=== PATIENT | female | born 1995 | race Caucasian/White ===

== ENCOUNTER → 2019-04-30 17:06 | Outpatient (CLI) | payer MEDICAID, SELFPAY ==
[2019-04-30 13:44] VITALS: BMI 29.9
[2019-04-30 20:32] LABS: Chlamydia Trachomatis by PCR Negative (Negative); Neisserai gonorrhoeae by PCR Negative (Negative); Probe Check PASS; Sample Adequacy Control PASS; Specimen Processing Control PASS
== END ==
PROVIDERS: Referring Provider Nurse Practitioner Women's Health; Visit Provider Nurse Practitioner Women's Health
DX: Z11.3 Encounter for screening for infections with a predominantly sexual mode of transmission (principal)
CPT/HCPCS: 87491; 87591

== ENCOUNTER → 2020-01-13 15:12 | Outpatient (CLI) | payer MEDICAID, SELFPAY ==
[2019-04-30 13:44] VITALS: BMI 29.9
--- NOTE | 2020-01-13 15:24 | US_ITS ---
STUDY: FIRST TRIMESTER OBSTETRICAL ULTRASOUND REASON FOR EXAM: Female, 24 years old. Right lower quadrant pain. History of miscarriage. LMP: 12/06/2019 TECHNIQUE: Transvaginal PRIOR ULTRASOUND: None. FINDINGS: There is no demonstrated intrauterine gestational sac. There is no demonstrated yolk sac. There is no demonstrated embryo ( pole). The uterus measures 7.6 x 5.6 x 4.4 cm. The endometrium measures 12 mm.. There is no demonstrated uterine fibroid. The cervix is closed. The right ovary measures 3.4 x 2.1 x 1.8 cm. There is no right ovarian cyst. There is no visualized right adnexal mass or complex lesion. The left ovary measures 2.8 x 2.4 x 1.9 cm. There is no left ovarian cyst. There is no visualized left adnexal mass or complex lesion. There is a moderate amount of free fluid. US/Transvaginal w/Preg US IMPRESSION: No intrauterine gestation identified. No adnexal mass identified. Moderate amount of free fluid. These findings may be due to an early intrauterine gestation, a nonvisualized ectopic or a spontaneous . Follow-up sonography and beta hCG levels are recommended. Electronically Signed: Trace Clifford, at 16:11 EST Tel , Service support ,
[2020-01-13 16:42] LABS: hCG Titer Quant., Serum 53 mIU/mL (1-3)
== END ==
PROVIDERS: Nurse Practitioner Women's Health; Referring Provider Obstetrics & Gynecology; Visit Provider Obstetrics & Gynecology
DX: O20.0 Threatened abortion (principal); O36.80X0 Pregnancy with inconclusive fetal viability, not applicable or unspecified; Z3A.00 Weeks of gestation of pregnancy not specified
CPT/HCPCS: 36415; 76817; 84702

== ENCOUNTER → 2020-01-15 15:06 | Outpatient (CLI) | payer MEDICAID, SELFPAY ==
[2019-04-30 13:44] VITALS: BMI 29.9
[2020-01-15 16:13] LABS: hCG Titer Quant., Serum 100 mIU/mL (1-3)
== END ==
PROVIDERS: Referring Provider Nurse Practitioner Women's Health; Visit Provider Nurse Practitioner Women's Health
DX: O20.0 Threatened abortion (principal); Z3A.00 Weeks of gestation of pregnancy not specified
CPT/HCPCS: 36415; 84702

== ENCOUNTER → 2020-01-18 12:26 | Outpatient (CLI) | payer MEDICAID, SELFPAY ==
[2019-04-30 13:44] VITALS: BMI 29.9
[2020-01-18 13:34] LABS: hCG Titer Quant., Serum 442 mIU/mL (1-3)
== END ==
PROVIDERS: Referring Provider Nurse Practitioner Women's Health; Visit Provider Nurse Practitioner Women's Health
DX: O20.0 Threatened abortion (principal); Z3A.00 Weeks of gestation of pregnancy not specified
CPT/HCPCS: 36415; 84702

== ENCOUNTER → 2020-01-25 15:46 | Outpatient (CLI) | payer MEDICAID, SELFPAY ==
[2019-04-30 13:44] VITALS: BMI 29.9
--- NOTE | 2020-01-25 15:46 | US_ITS ---
STUDY: FIRST TRIMESTER OBSTETRICAL ULTRASOUND REASON FOR EXAM: Female, 24 years old VIABILITY LMP: TECHNIQUE: Transvaginal TECHNICAL QUALITY: Adequate. PRIOR ULTRASOUND: None. FINDINGS: There is visualization of a single gestational sac in a normal intrauterine position. The mean sac diameter (MSD) measures 8.6 mm, indicating an estimated gestational age (EGA) of 5 weeks, 4 days. The gestational sac shape is within normal limits. There is a visualized yolk sac. The yolk sac measures 2 mm. The placenta is non-visualized. pole not visualized at this time The estimated gestation age (EGA) by LMP is 5 weeks, 5 days. The estimated date of delivery (SUMI) by LMP is September 21, 2020. The estimated gestation age (EGA) by US is 5 weeks, 4 days. The estimated date of delivery (SUMI) by US is September 21, 2020. The uterus measures 7.3 x 5.9 x 4.5 cm. There is no demonstrated uterine fibroid. The cervix is closed. The right ovary measures 3.3 x 1.9 x 2 cm. There is no right ovarian cyst. There is no visualized right adnexal mass or complex lesion. The left ovary measures 4.1 x 2.3 x 1.8 cm. There is a cyst measuring 1.9 x 1.5 x 1.2 cm likely corpus luteum. There is no visualized left adnexal mass or complex lesion. There is minimal fluid in the cul de sac. US/Init OB < 14Wks US IMPRESSION: Probable early intrauterine gestation approximately 5-6 weeks gestational age. Small left corpus luteum cyst. Recommend clinical correlation and follow-up studies Electronically Signed: Colt Pierre MD at 23:05 EST , Service support ,
== END ==
PROVIDERS: Referring Provider Nurse Practitioner Women's Health; Visit Provider Nurse Practitioner Women's Health
DX: O20.0 Threatened abortion (principal); Z3A.00 Weeks of gestation of pregnancy not specified
CPT/HCPCS: 76801

== ENCOUNTER → 2020-02-11 11:04 | Outpatient (CLI) | payer MEDICAID, SELFPAY ==
[2020-02-11 11:01] VITALS: BMI 29.9
[2020-02-11 11:58] LABS: Absolute Lymphocyte Count 2.11 X10^3/uL (0.83-4.51); Absolute Neutrophil Count 5.3 X10^3/uL (2.0-7.7); Basophil# 0.03 X10^3/uL; Basophil% 0.4 % (0-1); Eosinophil# 0.16 X10^3/uL; Hematocrit 36.3 % (37-47); Hemoglobin 11.9 g/dL (12.0-15.0); Lymphocyte # 2.11 X10^3/ul (4.0); Lymphocyte % 25.9 % (19-41); Mean Corp Hgb Conc 32.8 g/dL (32-36); Mean Corpuscular Hgb 29.8 pg (27.0-32.0); Mean Corpuscular Volume 90.8 fL (81-99); Mean Platelet Vol. 10.9 fl (6.2-12.0); Monocyte# 0.57 X10^3/uL; NRBC Flagged by Analyzer 0 % (0-5); Neutrophil # 5.25 X10^3/uL (2.7-7.7); Neutrophil % 64.5 % (47-70); Platelet Count 267 K/mm3 (150-450); RBC Distribution Width CV 12.1 % (11.6-14.6); RBC Distribution Width SD 40.3 fl (35.1-43.9); White Blood Count 8.1 K/mm3 (4.4-11.0)
[2020-02-11 12:07] LABS: Glucose Challenge Gest 1H 50g 112 mg/dL (70-140)
[2020-02-11 12:57] LABS: HIV - WCH Non-Reactive (Nonreactive); Hepatitis B Surface Antigen Non-Reactive (Nonreactive); Hepatitis C Antibody Non-Reactive (Nonreactive); Rubella IgG > 500.0 IU/mL
[2020-02-11 15:38] LABS: Amphetamine Urine VISTA NEGATIVE (<1000 ng/mL); Barbiturate Urine VISTA NEGATIVE (< 200 ng/mL); Benzodiazepine Urine VISTA NEGATIVE (< 200 ng/mL); Cocaine Urine VISTA NEGATIVE (< 300 ng/mL); Ecstacy Urine VISTA NEGATIVE (< 500 ng/mL); Methadone Urine VISTA NEGATIVE (< 300 ng/mL); PCP Urine VISTA NEGATIVE (< 25 ng/mL); THC Urine VISTA NEGATIVE (< 50 ng/mL); Vista UDS pH Range 7
[2020-02-11 17:09] LABS: Chlamydia Trachomatis by PCR Negative (Negative); Neisserai gonorrhoeae by PCR Negative (Negative); Probe Check PASS; Sample Adequacy Control PASS; Specimen Processing Control PASS
[2020-02-18 02:22] LABS: Rapid Plasmin Reagin (RPR) NONREACTIVE (NONREACTIVE)
[2020-02-18 11:27] LABS: HPV APTIMA, High Risk Negative (Negative)
[2020-02-18 11:31] LABS: HPV Reflexed? YES, CHARGE PATIENT
== END ==
PROVIDERS: Referring Provider Obstetrics & Gynecology; Visit Provider Obstetrics & Gynecology
DX: O99.210 Obesity complicating pregnancy, unspecified trimester (principal); Z3A.00 Weeks of gestation of pregnancy not specified
CPT/HCPCS: 80307; 82950; 85025; 86592; 86703; 86762; 86803; 86850; 86900; 86901; 87086; 87088; 87340; 87491; 87591; 87624; 88175; G0145

== ENCOUNTER → 2020-02-24 10:06 | Outpatient (CLI) | payer MEDICAID, SELFPAY ==
[2020-02-11 11:01] VITALS: BMI 29.9
[2020-02-24 11:09] LABS: NATERA MAILED SPECIMEN
== END ==
PROVIDERS: Referring Provider Obstetrics & Gynecology; Visit Provider Obstetrics & Gynecology
DX: Z34.81 Encounter for supervision of other normal pregnancy, first trimester (principal); Z31.430 Encounter of female for testing for genetic disease carrier status for procreative management

== ENCOUNTER → 2020-05-04 13:46 | Outpatient (CLI) | payer MEDICAID, SELFPAY ==
[2020-05-04 08:26] VITALS: BMI 29.9
--- NOTE | 2020-05-04 13:48 | US_ITS ---
STUDY: SECOND AND THIRD TRIMESTER OBSTETRICAL ULTRASOUND REASON FOR EXAM: Female, 24 years old ANATOMY -- HXOF MISCARRIAGES -- SMOKING AND OBESITY AFFECTING LMP: December 16, 2019. TECHNIQUE: Transabdominal TECHNICAL QUALITY: Adequate. PRIOR ULTRASOUND: None. FINDINGS: There is a single intrauterine fetus. The fetus is in a breech presentation. There is demonstrated cardiac activity with a heart rate of 158 bpm. There is a normal amniotic fluid volume. The largest amniotic fluid pocket measures 3.8 cm x 6.5 cm. The amniotic fluid index (ZEINA) is normal. The placenta is anterior in location and is not low lying. There are Grade 1 placental changes. The cervix measures 4.4 cm in length. The adnexal regions are not visualized. BIOMETRY: BPD: 4.55 cm: 19 weeks, 6 days HC: 17.04 cm: 19 weeks, 5 days AC: 14.26 cm: 19 weeks, 5 days FL: 3.16 cm: 19 weeks, 6 days CI: 78% FL/BPD: 69% FL/HC: FL/AC: 22% HC/AC: 1.19 age by current US: 19 weeks, 6 days. SUMI by current US: September 22, 2020. Estimated weight: 308 grams, +/- 45 grams, 30 %. Age by LMP: 20 weeks, 0 days. SUMI by LMP: September 21, 2020. ANATOMY: Gender: Female Cranium: Normal lateral ventricles. Normal choroid plexus. Normal cerebellum. Normal cisterna magna. Normal face, nose and lips. Chest: Normal 4-chamber heart. Abdomen/Pelvis: Normal diaphragm. Normal stomach. Normal abdominal wall. Normal cord insertion. Normal 3 vessel cord. Normal kidneys. Normal bladder. Spine: Limited visualization of the spine due to the anterior position. Follow-up is recommended. Extremities: Normal bilateral upper extremities. Normal bilateral lower extremities. US/OB Anatomy Scan IMPRESSION: Single live intrauterine gestation with a mean gestational age of 19 weeks and 6 days. Limited visualization of the spine. Follow-up is recommended. Electronically Signed: Herminio Cote, at 8:14 EDT , Service support ,
== END ==
PROVIDERS: Referring Provider Nurse Practitioner Women's Health; Visit Provider Nurse Practitioner Women's Health
DX: Z34.90 Encounter for supervision of normal pregnancy, unspecified, unspecified trimester (principal)
CPT/HCPCS: 76805

== ENCOUNTER → 2020-05-18 07:48 | Outpatient (CLI) | payer MEDICAID, SELFPAY ==
[2020-05-04 08:26] VITALS: BMI 29.9
--- NOTE | 2020-05-18 07:49 | US_ITS ---
STUDY: SECOND AND THIRD TRIMESTER OBSTETRICAL ULTRASOUND - LIMITED REASON FOR EXAM: Female, 24 years old complete spine views LMP: December 16, 2019. PRIOR ULTRASOUND: Comparison is made with prior examination dated May 04, 2020. TECHNIQUE: Transabdominal TECHNICAL QUALITY: Adequate. FINDINGS: There is a single intrauterine fetus. The fetus is in a transverse lie with the head on the maternal right side. There is demonstrated cardiac activity with a heart rate of 152 bpm. There is a normal amniotic fluid volume. The largest amniotic fluid pocket measures 5.2 cm x 5.2 cm. The amniotic fluid index (ZEINA) is within normal limits. The placenta is anterior in location and is not low lying. There are Grade 1 placental changes. The cervix measures 5 cm in length. The entire spine was examined. No abnormality is seen. US/OB Limited (No Biometrics) IMPRESSION: The spine is unremarkable. Electronically Signed: Herminio Cote, at 9:06 EDT , Service support ,
== END ==
PROVIDERS: Referring Provider Nurse Practitioner Women's Health; Visit Provider Nurse Practitioner Women's Health
DX: Z34.90 Encounter for supervision of normal pregnancy, unspecified, unspecified trimester (principal)
CPT/HCPCS: 76815

== ENCOUNTER → 2020-07-01 07:50 | Outpatient (CLI) | payer MEDICAID, SELFPAY ==
[2020-06-01 08:28] VITALS: BMI 29.9
[2020-07-01 08:39] LABS: Absolute Lymphocyte Count 1.69 X10^3/uL (0.83-4.51); Absolute Neutrophil Count 7.6 X10^3/uL (2.0-7.7); Basophil# 0.02 X10^3/uL; Basophil% 0.2 % (0-1); Eosinophil# 0.16 X10^3/uL; Eosinophils% 1.6 % (0-5); Hematocrit 33.1 % (37-47); Hemoglobin 11.1 g/dL (12.0-15.0); Lymphocyte # 1.69 X10^3/ul (4.0); Mean Corp Hgb Conc 33.5 g/dL (32-36); Mean Corpuscular Hgb 30.8 pg (27.0-32.0); Mean Corpuscular Volume 91.9 fL (81-99); Mean Platelet Vol. 10.9 fl (6.2-12.0); Monocyte# 0.48 X10^3/uL; Monocyte% 4.8 % (0-10); NRBC Flagged by Analyzer 0 % (0-5); Neutrophil # 7.55 X10^3/uL (2.7-7.7); Platelet Count 304 K/mm3 (150-450); RBC Distribution Width CV 12.3 % (11.6-14.6); RBC Distribution Width SD 41.2 fl (35.1-43.9); White Blood Count 9.9 K/mm3 (4.4-11.0)
[2020-07-01 09:10] LABS: Glucose Challenge Gest 1H 50g 144 mg/dL (70-140)
== END ==
PROVIDERS: Referring Provider Obstetrics & Gynecology; Visit Provider Obstetrics & Gynecology
DX: Z34.80 Encounter for supervision of other normal pregnancy, unspecified trimester (principal); N96 Recurrent pregnancy loss
CPT/HCPCS: 36415; 82950; 85025

== ENCOUNTER → 2020-07-08 06:47 | Outpatient (CLI) | payer MEDICAID, SELFPAY ==
[2020-07-01 08:17] VITALS: BMI 33.7
[2020-07-08 07:37] LABS: Glucose GTT-Gestation. Fasting 80 mg/dL (<105)
[2020-07-08 08:22] LABS: Glucose GTT-Gestational 1 Hr 197 mg/dL (<190)
[2020-07-08 09:22] LABS: Glucose GTT-Gestational 2 Hr 159 mg/dL (<165)
[2020-07-08 10:29] LABS: Glucose GTT-Gestational 3 Hr 85 L (<145)
== END ==
PROVIDERS: Visit Provider Obstetrics & Gynecology
DX: O99.810 Abnormal glucose complicating pregnancy (principal); Z3A.00 Weeks of gestation of pregnancy not specified
CPT/HCPCS: 36415; 82951; 82952

== ENCOUNTER 2020-07-13 08:53 | Outpatient (RCR) | payer MEDICAID, SELFPAY ==
[2020-07-01 08:17] VITALS: BMI 33.7
== END 2020-07-20 23:59 | disposition home or self-care (01) ==
LOC: DC 08:53
PROVIDERS: Visit Provider Obstetrics & Gynecology
DX: Z71.3 Dietary counseling and surveillance (principal); O24.419 Gestational diabetes mellitus in pregnancy, unspecified control; Z3A.00 Weeks of gestation of pregnancy not specified
CPT/HCPCS: G0108

== ENCOUNTER → 2020-08-25 08:00 | Outpatient (CLI) | payer MEDICAID, SELFPAY ==
[2020-07-29 08:04] VITALS: BMI 29.9
[2020-08-16 11:20] VITALS: BMI 29.9
--- NOTE | 2020-08-25 08:01 | US_ITS ---
STUDY: SECOND AND THIRD TRIMESTER OBSTETRICAL ULTRASOUND REASON FOR EXAM: Female, 25 years old growth LMP: 12/16/2019. TECHNIQUE: Transabdominal TECHNICAL QUALITY: Adequate. PRIOR ULTRASOUND: Comparison is made with prior study dated 05/18/2020 and 05/04/2020.. FINDINGS: There is a single intrauterine fetus. The fetus is in a cephalic presentation. There is demonstrated cardiac activity with a heart rate of 138 bpm. There is a normal amniotic fluid volume. The largest amniotic fluid pocket measures 4.6 cm. The amniotic fluid index (ZEINA) is 12.9 cm. The placenta is anterior in location and is not low lying. There are Grade 2 placental changes. The cervix was not measured due to the head position.The bilateral adnexal regions are normal. BIOMETRY: BPD: 8.6 cm: 34 weeks, 4 days HC: 31.7 cm: 35 weeks, 3 days AC: 31.7 cm: 35 weeks, 4 days FL: 6.8 cm: 34 weeks, 5 days CI: 79% FL/BPD: 79% FL/HC: FL/AC: 21% HC/AC: 1.0 age by current US: 35 weeks, 0 days. SUMI by current US: 09/29/2020. Estimated weight: 2642 grams, +/- 391 grams, 30 %. age by prior US: 36 weeks, 0 days. SUMI by prior US: 09/22/2020. Age by LMP: 36 weeks, 1 days. SUMI by LMP: 09/21/2020. US/OB Limited With Biometrics IMPRESSION: Single live intrauterine gestation with mean gestational age of 36 weeks. The measurements obtained today fall within normal expected range. Electronically Signed: Herminio Cote, at 9:47 EDT , Service support ,
== END ==
PROVIDERS: Referring Provider Obstetrics & Gynecology; Visit Provider Obstetrics & Gynecology
DX: O09.90 Supervision of high risk pregnancy, unspecified, unspecified trimester (principal); O24.419 Gestational diabetes mellitus in pregnancy, unspecified control; Z3A.00 Weeks of gestation of pregnancy not specified
CPT/HCPCS: 76816

== ENCOUNTER → 2020-08-26 16:49 | Outpatient (CLI) | payer MEDICAID, SELFPAY ==
[2020-08-26 08:01] VITALS: BMI 34.7
== END ==
PROVIDERS: Referring Provider Obstetrics & Gynecology; Visit Provider Obstetrics & Gynecology
DX: O09.90 Supervision of high risk pregnancy, unspecified, unspecified trimester (principal); Z3A.00 Weeks of gestation of pregnancy not specified
CPT/HCPCS: 87081

== ENCOUNTER 2020-09-07 19:40 | Outpatient (CLI) | payer MEDICAID, SELFPAY ==
[2020-09-02 09:27] VITALS: BMI 34.7
[2020-09-07 19:50] VITALS: BP 122/77; PULSE 89; TEMP 36.4
[2020-09-07 20:00] VITALS: BMI 34.7
[2020-09-07 20:41] LABS: ROM Internal Control Test YES-OK TO RESULT pt. (Internal QC); ROM Patient Test Negative (Negative)
--- NOTE | 2020-09-07 21:00 | OB.TRI.PN ---
Progress Notes Date of Service: 09/07/20 Progress Note: Patient is a 25-year-old G7, P1 at 38 weeks gestation who presents to OB triage for contractions and possible leakage of fluid. Cervix was closed in triage. ROM plus was negative. NST was reactive. Patient discharged home in stable condition. Laboratory Studies: Laboratory Tests 09/07/20 Range/Units 20:08 Vag Amniotic Fld Detect Negative (Negative) Multi Select Codes - Urinary/Genital Urinary/Genital CPT Codes: 51724-37 non-stress test Interp
== END 2020-09-07 21:08 | disposition home or self-care (01) ==
LOC: WPOUT 19:43 → OBT 19:43
PROVIDERS: Visit Provider Obstetrics & Gynecology
DX: N89.8 Other specified noninflammatory disorders of vagina (principal); O26.893 Other specified pregnancy related conditions, third trimester; O99.213 Obesity complicating pregnancy, third trimester; E66.9 Obesity, unspecified; Z3A.38 38 weeks gestation of pregnancy
CPT/HCPCS: 59025; 59050; 84112; 99218; G0378

== ENCOUNTER 2020-09-16 06:50 | Inpatient (IN) | payer MEDICAID, SELFPAY ==
[2020-09-09 08:22] VITALS: BMI 35.6
[2020-09-16] VITALS (24 sets, daily range): BP systolic 101–132; BP diastolic 51–84; PULSE 60–75; RESP 16; TEMP 36.2–37.1; O2SAT 98; BMI 35.9
--- NOTE | 2020-09-16 07:34 | PCM.HPOB.BLA ---
- Problem List (1) ASCUS of cervix with negative high risk HPV Status: Acute Comment: repeat in 3 yrs (2) Abnormal laboratory test result Status: Acute Comment: low protein s in - likely WNL but recommend repeat (3) Gestational diabetes Status: Acute Comment: diet controlled. s/p nutrition consult. endocrine consult in aug - called to get appointment sooner. blood sugar testing fasting and 2 hours after each meal - well controlled. growth scan at 36 delivery 39-40. (4) History of recurrent miscarriages Status: Acute Comment: ordered APL testing. repeat protein S 3 months PP (5) Obesity affecting Status: Acute Qualifiers: Comment: nl 1TM glucola. encourage healthy weight gain (6) Status: Acute Qualifiers: Comment: declines NTD. NIPT low risk. carrier neg. ; normal anatomy (7) Supervision of high-risk Status: Acute Comment: PRR SUMI 09/21/2020 Girl [facility]iva PC: Anais BF: Ry (8) Tobacco smoking affecting Status: Acute Qualifiers: Comment: encouraged cessation History and Physical Date of Admission: 09/16/20 Intake Vital Signs 09/09/20 Height 5 ft 5 in 09/09/20 Weight: 214 lb 09/09/20 BP 132/82 H 09/09/20 BMI 34.7 Intake Visit Reasons: 38 WK OB Chief Complaint: est ob Software Product Specialist Required: No Is patient in pain?: No Allergies No Known Allergies Allergy (Verified 09/09/20 08:22) Medications multivitamin no.47-iron fum 27 mg-folate no.1 1 mg-dha 300 mg capsule cap PO 02/11/20 [History Confirmed 09/09/20] blood sugar diagnostic See Rx Instructions .ROUTE .MEDSUPPLY #100 ea 07/11/20 [Rx Confirmed 09/09/20] blood-glucose meter See Rx Instructions .ROUTE .MEDSUPPLY #1 ea 07/11/20 [Rx Confirmed 09/09/20] famotidine 20 mg tablet 20 mg PO DAILY #30 tab 08/12/20 [Rx Confirmed 09/09/20] flash glucose sensor See Rx Instructions .ROUTE .MEDSUPPLY #2 ea 08/31/20 [Rx Confirmed 09/09/20] Last Menstral Period: 12/16/19 Zika: Zika virus screening: Negative : No PFSH PFSH Medical History Allergies (Acute) No significant medical problems (Acute) Surgical History No history of previous surgery (Acute) Family History Grandfather Diabetes Grandmother Atrial fibrillation Social History (Updated 09/09/20 @ 09:[address] Leatha Franz MD) adopted: No household members: family housing: house number of children: 1 current occupational status: student current occupation: MA schooling pets and animals: Yes sexually active: Yes Smoking Status: Light Smoker (<10/day) second hand exposure: No alcohol intake: current details: not while substance use type: does not use caffeine: Yes what type of physical activity do you participate in: walking frequency: 3-4 times per week seatbelt use: always do you feel safe at home: Yes additional social history: Ry Pregancy History 7 Elective abortions Hx Para 1 Spontaneous abortions 5 Hx # Term Pregnancies Ectopic pregnancies Hx # Pregnancies Multiple births # of living children Past Pregnancies Del. Date Name GA/Weeks Outcome Route Bth Weight Infant Gen Labor Lgth Anesthesia Del Locatn Provider FOB 02/22/15 Anais 40 live - full term 6lbs 5oz Female 1.5 hours none Janelle Florence Delivery Date: 02/22/15 On 02/11/20 @ 10:06 Fannie Sanz no complications HPI 38 WK OB: Details: SUSI PAUL is a 25 year old @ 38 weeks with GDMA1. OB Visit SUMI Calculator Estimated Delivery Date Method Current WG Current Estimate 09/21/20 LMP (Certain) 38w 2d Other Estimates 09/25/20 Ultrasound #1 37w 5d Expected Delivery Route/Plan Labor Preferences- labor support person: Ry pain management options preferred: desires minimal intervention - went natural with last cut cord/dad catch: yes : yes PP control planned: discussed possible routes of delivery and associated risks: discussed possible delivery modalities and possible indications for each including R/B/A of , VAVD, FAVD, and CS. questions answered. special requests: [] Specific Issue/Plans flu vaccine: given tdap vaccine: declined rhogam: na LARC form signed: yes movement and labor precautions reviewed. Problem list reviewed and updated with the most current plan of care details and appropriate orders placed. Relevant counseling for the gestational age provided. Continue routine care and follow up unless otherwise noted in visit notes/problem list details Initial Weight: 197 lb Date EGA Weight BP Urine Prot Glucose FHR FuHt Pres Dilation Effaced St Visit Note 03/09/20 12w 0d 192 lb (-5 lb) 110/70 Negative Negative 145 SM- no vb cramping doing well. declines AFP. fu 8 weeks due to covid limitations on visits. 05/04/20 20w 0d 193 lb (-4 lb) 126/66 Negative Negative 146 20 MH-NO VB, LOF. Starting to feel movement. MFM US did not get scheduled and now is 05/19 at almost 23 weeks. Plan PAIGE US with [facility]. 06/01/20 24w 0d 202 lb (+5 lb) 130/74 Negative Negative 245 24 SM- no vb lof good fm no regular ctx 07/01/20 28w 2d 203 lb (+6 lb) 126/84 Negative Negative 145 28 SM- no vb lof good fm no reglar ctx cbc gct declines tdap apl panel drawn 07/14/20 30w 1d 204 lb (+7 lb) 94/60 145 30 SM- discussed diet, all BS well controlled. no vb lof good fm no regular ctx. discussed low protein s, may be due to , recommend repeat 3 months PP 07/29/20 32w 2d 203 lb (+6 lb) 110/74 150 32 GP - BGTs well controlled. Told by endo can't be seen until 08/16 - called today to schedule appointment. No LOF, VB, DFM, ctx. 08/12/20 34w 2d 206 lb (+9 lb) 116/70 Negative Negative 150 34 SM- BS well controlled. no vb lof good fm no regular ctx 08/26/20 36w 2d 208 lb 8 oz (+11 lb 8 oz) 120/76 Negative Negative 145 36 Cephalic 0 GP - no LOF, VB, DFM, ctx. BGTs well controlled. Discussed covid testing. Discussed routes of delivery. 09/02/20 37w 2d 209 lb 2 oz (+12 lb 2 oz) 132/78 Negative Negative 140 37 Cephalic 2 20 -3 Sm- no vb lof good fm no regular ctx BS well controlled. discussed IOL by 39-40 weeks 09/09/20 38w 2d 214 lb (+17 lb) 132/82 Negative Negative 145 38 Cephalic 3 60 -1 Sm- no vb lof good fm no regular ctx BS fairly controlled ACOG First Trimester First Trimester: Desire for , Alcohol, Tobacco Cessation, Illicit/Recreational Drug/Substance Use, Intimate Partner Violence, Barriers to care, Unstable Housing, Communication Barriers, Environmental/Work Hazards, Anticipated Course of Care, Toxoplasmosis Precations, Use of Any medications, Sexual activity, Exercise, Dental Care, Sauna/Hot tub use, Seat Belt use, Childbirth classes/Hospital facilities, , Travel, Indications for US and Screening for Aneuploidy Diagnostics Diagnostics Diagnostics Gest Glucose Tolerance MG/DL 07/08/20 Details: HIV: Urine Culture: Sequential Screen: NIPT Screen: ROS Const Reports system reviewed and no additional complaints, except as docu Card Reports system reviewed and no additional complaints, except as docu Resp Reports system reviewed and no additional complaints, except as docu GI Reports system reviewed and no additional complaints, except as docu, Reports nausea Reports system reviewed and no additional complaints, except as docu Musc Reports system reviewed and no additional complaints, except as docu Exam Const General: cooperative, healthy appearing, comfortable, anxious HENMT Head: normal to inspection Nose: external nose normal Face and sinus: normal facial exam Neck Neck: normal visual inspection, full ROM, no lymphadenopathy Thyroid: thyroid normal Chest Chest palpation & inspection: normal inspection of the chest Resp Effort & Inspection: normal respiratory effort GI Inspection: normal to inspection Palpation: soft, other (gravid uterus) Other: vertex and appropriate size for gestational age Other: Cervical Exam: Extrem General: pedal edema Results POC Urinalysis 2 Dip (Clinic) Office Urine Glucose Negative Last Edit by Patricia Ellsworth on 09/09/20 08:28 Office Urine Protein Negative Last Edit by Patricia Ellsworth on 09/09/20 08:28 Assessment & Plan Problems 1. Z34.90 declines NTD. NIPT low risk. carrier neg. ; normal anatomy 2. Obesity affecting O99.210 nl 1TM glucola. encourage healthy weight gain 3. History of recurrent miscarriages N96 ordered APL testing. repeat protein S 3 months PP 4. Tobacco smoking affecting O99.330 encouraged cessation 5. ASCUS of cervix with negative high risk HPV R87.610 repeat in 3 yrs 6. Supervision of high-risk O09.90 PRR SUMI 09/21/2020 Girl Oliva PC: Anais BF: Ry 7. Gestational diabetes O24.419 diet controlled. s/p nutrition consult. endocrine consult in aug - called to get appointment sooner. blood sugar testing fasting and 2 hours after each meal - well controlled. growth scan at 36 delivery 39-40. 8. Abnormal laboratory test result R89.9 low protein s in - likely WNL but recommend repeat 9. 37 weeks gestation of Z3A.37 COVID TESTING ORDERED 08/31/2020sc Plan Patient presents IOL, plan management for with pitocin/AROM. Pain management: plans epidural. GBS negative. Management of any complications: GDMA1 I have reviewed the [facility] and made any clinically relevant updates. Orders Orders: POC Urinalysis 2 Dip (Clinic) Today Coding Level of Care Code Off vis,est,level 3 Diagnoses Z34.90 Obesity affecting O99.210 History of recurrent miscarriages N96 Tobacco smoking affecting O99.330 ASCUS of cervix with negative high risk HPV R87.610 Supervision of high-risk O09.90 Gestational diabetes O24.419 Abnormal laboratory test result R89.9 37 weeks gestation of Z3A.37 UPDATE- I have seen the patient and performed any clinically relevant updates to the history and physical exam. Leatha Franz MD
[2020-09-16] MEDS: Lactated Ringers 1,000 ML 50 ML IV (07:35)
[2020-09-16 07:58] LABS: Absolute Lymphocyte Count 1.78 X10^3/uL (0.83-4.51); Absolute Neutrophil Count 7.6 X10^3/uL (2.0-7.7); Basophil# 0.02 X10^3/uL; Basophil% 0.2 % (0-1); Eosinophil# 0.08 X10^3/uL; Eosinophils% 0.8 % (0-5); Hematocrit 33.6 % (37-47); Hemoglobin 10.9 g/dL (12.0-15.0); Lymphocyte # 1.78 X10^3/ul (4.0); Lymphocyte % 17.2 % (19-41); Mean Corp Hgb Conc 32.4 g/dL (32-36); Mean Corpuscular Hgb 29.6 pg (27.0-32.0); Mean Corpuscular Volume 91.3 fL (81-99); Mean Platelet Vol. 10.9 fl (6.2-12.0); Monocyte% 7.8 % (0-10); NRBC Flagged by Analyzer 0 % (0-5); Neutrophil # 7.58 X10^3/uL (2.7-7.7); Neutrophil % 73.4 % (47-70); Platelet Count 253 K/mm3 (150-450); RBC Distribution Width CV 12.8 % (11.6-14.6); RBC Distribution Width SD 42.3 fl (35.1-43.9); Red Blood Count 3.68 M/mm3 (4.2-5.4); White Blood Count 10.3 K/mm3 (4.4-11.0)
[2020-09-16] MEDS: Oxytocin 30 units/NS 500 ml 30 UNITS/500 ML IV.SOLN IV (08:20)
[2020-09-16 08:36] LABS: Bedside Glucose 85 mg/dL (70-110)
[2020-09-16 11:56] LABS: Bedside Glucose 85 mg/dL (70-110)
[2020-09-16] MEDS: Acetaminophen 500 MG Tablet 1000 MG PO ×2 (11:56→23:46)
--- NOTE | 2020-09-16 13:27 | PCM.PN.BLA ---
Progress Note 130 moderate variability reactive no decelerations category I tracing [place]: regular 60/-1 arom clear fluid STROKE Vital Signs/Narrative: Vital Signs Temp Pulse BP 09/16/20 12:51 62 132/78 H 09/16/20 12:03 63 124/84 H 09/16/20 11:27 97.5 F L 09/16/20 11:26 65 124/79 H 09/16/20 10:54 68 119/73 09/16/20 10:07 67 118/73
[2020-09-16] MEDS: fentaNYL-bupivacaine (epidural) 100 ML BAG EPIDURAL (14:28)
[2020-09-16] MEDS: Lactated Ringers 500 ML 999 ML IV (15:33)
[2020-09-16] MEDS: Oxytocin 30 units/NS 500 ml 30 UNITS/500 ML IV.SOLN 334 UNITS IV (17:09)
--- NOTE | 2020-09-16 17:15 | PCM.OPRPT ---
Problem List (1) ASCUS of cervix with negative high risk HPV Status: Acute Comment: repeat in 3 yrs (2) Abnormal laboratory test result Status: Acute Comment: low protein s in - likely WNL but recommend repeat (3) Gestational diabetes Status: Acute Comment: diet controlled. s/p nutrition consult. endocrine consult in aug - called to get appointment sooner. blood sugar testing fasting and 2 hours after each meal - well controlled. growth scan at 36 delivery 39-40. (4) History of recurrent miscarriages Status: Acute Comment: ordered APL testing. repeat protein S 3 months PP (5) Obesity affecting Status: Acute Qualifiers: Comment: nl 1TM glucola. encourage healthy weight gain (6) Status: Acute Qualifiers: Comment: declines NTD. NIPT low risk. carrier neg. ; normal anatomy (7) Supervision of high-risk Status: Acute Comment: PRR SUMI 09/21/2020 Girl Oliva PC: Anais BF: Ry (8) Tobacco smoking affecting Status: Acute Qualifiers: Comment: encouraged cessation Vaginal Delivery Maternal Presentation: Medically Indicated Induction iol [email or web address] Method of Induction: Pitocin Amniotic Membrane Rupture Type: Artificial Amniotic Fluid Description: Clear Date of Procedure: 09/16/20 Pre-Operative Diagnosis: iol gdma1 Post-Operative Diagnosis: samew Surgery/ Procedure Performed: Spontaneous Vaginal Delivery Type of Anesthesia: Epidural Description of Procedure: Patient began pushing and delivered the head in the LITTLE presentation. The head was delivered atraumatically and a loose nuchal cord ?1 was identified and easily reduced over the 's head. The anterior and posterior shoulders delivered without complication followed by the rest of the infant and the infant was placed on the maternal abdomen. Delayed cord clamping was employed for approximately 60 seconds. Cord was clamped and cut and gentle traction was applied to the cord and the placenta delivered spontaneously immediately following it was noted to be intact with three-vessel cord. The perineum and vagina were inspected and noted to have no laceration. EBL was 100 cc. Patient and tolerated delivery well. Presentation: LITTLE Placental Delivery Description: Spontaneous Placenta Disposition: [facility] Cord Vessel Description: 3 Vessels Cord Entanglement: Around neck x 1, loose Estimated Blood Loss: 100 A gender: Female Episiotomy Description: None Laceration: None Medications given after delivery: IV Pitocin Complications: None Multi Select Codes - Urinary/Genital Urinary/Genital CPT Codes: 57020 Vaginal Delivery+ PP Care([facility])
[2020-09-16] MEDS: Naproxen 250 MG Tablet 500 MG PO (18:19)
[2020-09-17] MEDS: Naproxen 250 MG Tablet 500 MG PO (05:14)
--- NOTE | 2020-09-17 07:38 | DCINST_ITS ---
Discharge Diet: No Restrictions Discharge Activity: Return to Normal Activity, May not drive while taking narcotic pain medications., May Shower May resume sexual activity in: 4-6 weeks Call your doctor if your incision/area has: Continuous Slow Oozing, Sudden Increased Bleeding, Increased Pain/ Swelling, Increased Redness, Foul Smelling Discharge Additional Instructions: If you experience any of the following, contact your healthcare provider. * Bleeding that soaks a pad every hour for 2 hours * Fever 100.4 or higher * Unrelieved incision or abdominal pain * Swelling, redness, discharge or bleeding from your incision or episiotomy site * Your incision begins to separate * Problems urinating (including inability to urinate or burning while urinating). * Visual changes * Severe headache * Flu-like symptoms * Pain or redness in one of both of your breasts * Pain, warmth, tenderness or swelling in your legs, especially the calf area * Frequent nausea and vomiting * Symptoms of depression or anxiety If you experience any of the following, call 911 or go to the nearest Emergency Room. * Chest pain * Problems breathing * Seizure activity * Partial or complete paralysis of a body part, slurred speech, weakness or drooping of the face, or a sudden inability to walk or hold your balance Allergies/Adverse Reactions: Allergies No Known Allergies Allergy (Verified 09/09/20 08:22) Medications to take at Discharge multivitamin no.47-iron fum 27 mg-folate no.1 1 mg-dha 300 mg capsule 1 cap PO DAILY 02/11/20 Blood Sugar Diagnostic [Blood Glucose Test] See Rx Instructions .ROUTE .MEDSUPPLY 09/16/20 Blood-Glucose Meter [Contour] See Rx Instructions .ROUTE .MEDSUPPLY MDD 1 09/16/20 Famotidine 20 mg PO DAILY MDD 1 09/16/20 Flash Glucose Sensor [FreeStyle Rahel 2 Sensor] See Rx Instructions .ROUTE .MEDSUPPLY 09/16/20 Please Follow Up With: Leatha Franz MD - [phone] When: Call to make an appointment with your doctor in 6 weeks. If you had elevated Blood pressure or 4th degree laceration you will need to be seen in 2 weeks. Primary Care Physician: Care Physician,No Primary [Primary Care Provider] - Test Results: Test results from this visit will be discussed in further detail at your follow- up appointment, if applicable.
--- NOTE | 2020-09-17 07:38 | PN.OBGYN_ITS ---
Patient Problems: Active and Suspected Problems (Last Reviewed 09/09/20 @ 08:22 by Patricia Ellsworth) Abnormal laboratory test result (Acute) low protein s in - likely WNL but recommend repeat Gestational diabetes (Acute) diet controlled. s/p nutrition consult. endocrine consult in aug - called to get appointment sooner. blood sugar testing fasting and 2 hours after each meal - well controlled. growth scan at 36 delivery 39-40. Supervision of high-risk (Acute) PRR SUMI 09/21/2020 [facility]: Anais BF: Ry ASCUS of cervix with negative high risk HPV (Acute) repeat in 3 yrs Tobacco smoking affecting (Acute) encouraged cessation History of recurrent miscarriages (Acute) ordered APL testing. repeat protein S 3 months PP Obesity affecting (Acute) nl 1TM glucola. encourage healthy weight gain (Acute) declines NTD. NIPT low risk. carrier neg. ; normal anatomy Subjective: Patient doing well without complaints. Tolerating PO. Ambulating and voiding without difficulty. feeding well. Denies chest pain, shortness of breath, calf p ain/swelling, fevers, chills, lightheadedness. - Physical Exam Vitals/I&O's: Vital Signs Temp Pulse Resp BP Pulse Ox 97.9 F 69 18 118/69 97 09/17/20 05:00 09/17/20 05:00 09/17/20 05:00 09/17/20 05:00 09/17/20 05:00 Oxygen Delivery Method Room Air Weight: 216 lb 2 oz Body Mass Index (BMI) 35.9 Intake and Output for Last 24 Hours 09/15/20 09/16/20 09/17/20 23:59 23:59 23:59 Intake Total 1595.78 / 1595.78 Output Total 650 / 650 450 / 450 Balance 945.78 / 945.78 -450 / -450 General: Alert, Oriented x3 Laboratory Results 09/16/20 07:35: WBC 10.3, RBC 3.68 L, Hgb 10.9 L, Hct 33.6 L, MCV 91.3, MCH 29.6, MCHC 32.4, RDW Std Deviation 42.3, RDW Coeff of Lupillo 12.8, Plt Count 253, MPV 10.9, Immature Gran % (Auto) 0.600, Neut % (Auto) 73.4 H, Lymph % (Auto) 17.2 L, [place] % (Auto) 7.8, Eos % (Auto) 0.8, Baso % (Auto) 0.2, Absolute Neuts (auto) 7.6, Absolute Lymphs (auto) 1.78, Nucleated RBC % 0 09/16/20 07:35: Blood Type O POSITIVE, Antibody Screen NEGATIVE 09/16/20 08:18: POC Glucose 85 09/16/20 11:52: POC Glucose 85 Current Medications Acetaminophen (Acetaminophen 500 Mg Tablet) 1,000 mg PO Q8H PRN PRN PRN Reason: Pain Score 1-3 Last Admin: 09/16/20 23:46 Dose: 1,000 mg Documented by: Bisacodyl (Bisacodyl 10 Mg Suppository) 10 mg RECTAL UD PRN PRN Reason: If no BM Dextrose (Dextrose 50%-Water 25 Gm/50 Ml Disp.Syrin) 0 gm IV X1 PRN; Protocol PRN Reason: Hypoglycemia Dibucaine (Dibucaine 30 Gm Tube) 1 applic TOPICAL TID PRN PRN; Protocol PRN Reason: Discomfort Glucagon (Glucagon 1 Mg/Ml Syringe) 1 mg IM .X1 PRN PRN Reason: Hypoglycemia Hydrocortisone (Hydrocortisone 2.5% Crm) 1 applic TOPICAL TID PRN PRN; Protocol PRN Reason: Discomfort Methylergonovine Maleate (Methylergonovine 0.2 Mg/Ml Ampul) 0.2 mg IM X1 PRN PRN Reason: Excess bleeding/uterine atony Naproxen (Naproxen 250 Mg Tablet) 500 mg PO Q8H PRN PRN PRN Reason: Pain Score 1-3 Last Admin: 09/17/20 05:14 Dose: 500 mg Documented by: Ondansetron HCl (Ondansetron 4 Mg/2 Ml Vial) 4 mg IV Q4H PRN PRN PRN Reason: Nausea Oxycodone HCl (Oxycodone 5 Mg Tablet) 5 - 10 mg PO Q4H PRN PRN PRN Reason: Pain Score 4-10 Senna/Docusate Sodium (Senna/Docusate Sodium 1 Tablet) 1 - 2 tablet PO DAILY PRN PRN PRN Reason: Constipation Simethicone (Simethicone 80 Mg Tablet) 80 mg PO PCHS PRN PRN Reason: Indigestion/Stomach pain Sodium Chloride (0.9% Saline Lock 10 Ml Syringe) 5 - 15 ml IV UD PRN PRN Reason: SALINE FLUSH Medical Necessity - Tobacco Use Smoking Status: Current every day smoker Assessment/Plan All Active Problems (Last Reviewed 09/09/20 @ 08:22 by Patricia Ellsworth) 37 weeks gestation of (Acute) Abnormal laboratory test result (Acute) Gestational diabetes (Acute) Supervision of high-risk (Acute) ASCUS of cervix with negative high risk HPV (Acute) Tobacco smoking affecting (Acute) History of recurrent miscarriages (Acute) Obesity affecting (Acute) (Acute) Protein S deficiency (Resolved) s/p PPD # 1 1. routine post delivery care 2. breast feeding- support given 3. rh positive 4. rubella immune
[2020-09-17 08:15] VITALS: BP 112/68; PULSE 71; RESP 16; TEMP 36.4; O2SAT 98
[2020-09-17 10:11] LABS: Bedside Glucose 100 mg/dL (70-110)
[2020-09-17 16:00] VITALS: BP 121/85; PULSE 71; RESP 16; TEMP 36.4; O2SAT 99
[2020-09-17 16:46] VITALS: BP 121/85; PULSE 71; TEMP 36.4
[2020-09-17 21:35] VITALS: BP 124/76; PULSE 63; RESP 18; TEMP 36.6
[2020-09-18 03:15] VITALS: BP 105/63; PULSE 75; RESP 18; TEMP 36.9
--- NOTE | 2020-09-18 08:06 | PN.OBGYN_ITS ---
Patient Problems: Active and Suspected Problems (Last Reviewed 09/09/20 @ 08:22 by Patricia Ellsworth) Abnormal laboratory test result (Acute) low protein s in - likely WNL but recommend repeat Gestational diabetes (Acute) diet controlled. s/p nutrition consult. endocrine consult in aug - called to get appointment sooner. blood sugar testing fasting and 2 hours after each meal - well controlled. growth scan at 36 delivery 39-40. Supervision of high-risk (Acute) PRR SUMI 09/21/2020 [facility]: Anais BF: Ry ASCUS of cervix with negative high risk HPV (Acute) repeat in 3 yrs Tobacco smoking affecting (Acute) encouraged cessation History of recurrent miscarriages (Acute) ordered APL testing. repeat protein S 3 months PP Obesity affecting (Acute) nl 1TM glucola. encourage healthy weight gain (Acute) declines NTD. NIPT low risk. carrier neg. ; normal anatomy Subjective: Patient doing well without complaints. Tolerating PO. Ambulating and voiding without difficulty. feeding well. Denies chest pain, shortness of breath, calf p ain/swelling, fevers, chills, lightheadedness. - Physical Exam Vitals/I&O's: Vital Signs Temp Pulse Resp BP Pulse Ox 98.5 F 75 18 105/63 99 09/18/20 03:15 09/18/20 03:15 09/18/20 03:15 09/18/20 03:15 09/17/20 16:00 Oxygen Delivery Method Room Air Weight: 216 lb 2 oz Body Mass Index (BMI) 35.9 Intake and Output for Last 24 Hours 09/16/20 09/17/20 09/18/20 23:59 23:59 23:59 Intake Total 1595.78 / 1595.78 Output Total 650 / 650 450 / 450 Balance 945.78 / 945.78 -450 / -450 General: Alert, Oriented x3 Laboratory Results 09/17/20 05:32: POC Glucose 100 Current Medications Acetaminophen (Acetaminophen 500 Mg Tablet) 1,000 mg PO Q8H PRN PRN PRN Reason: Pain Score 1-3 Last Admin: 09/16/20 23:46 Dose: 1,000 mg Documented by: Bisacodyl (Bisacodyl 10 Mg Suppository) 10 mg RECTAL UD PRN PRN Reason: If no BM Dextrose (Dextrose 50%-Water 25 Gm/50 Ml Disp.Syrin) 0 gm IV X1 PRN; Protocol PRN Reason: Hypoglycemia Dibucaine (Dibucaine 30 Gm Tube) 1 applic TOPICAL TID PRN PRN; Protocol PRN Reason: Discomfort Glucagon (Glucagon 1 Mg/Ml Syringe) 1 mg IM .X1 PRN PRN Reason: Hypoglycemia Hydrocortisone (Hydrocortisone 2.5% Crm) 1 applic TOPICAL TID PRN PRN; Protocol PRN Reason: Discomfort Methylergonovine Maleate (Methylergonovine 0.2 Mg/Ml Ampul) 0.2 mg IM X1 PRN PRN Reason: Excess bleeding/uterine atony Naproxen (Naproxen 250 Mg Tablet) 500 mg PO Q8H PRN PRN PRN Reason: Pain Score 1-3 Last Admin: 09/17/20 05:14 Dose: 500 mg Documented by: Ondansetron HCl (Ondansetron 4 Mg/2 Ml Vial) 4 mg IV Q4H PRN PRN PRN Reason: Nausea Oxycodone HCl (Oxycodone 5 Mg Tablet) 5 - 10 mg PO Q4H PRN PRN PRN Reason: Pain Score 4-10 Senna/Docusate Sodium (Senna/Docusate Sodium 1 Tablet) 1 - 2 tablet PO DAILY PRN PRN PRN Reason: Constipation Simethicone (Simethicone 80 Mg Tablet) 80 mg PO PCHS PRN PRN Reason: Indigestion/Stomach pain Sodium Chloride (0.9% Saline Lock 10 Ml Syringe) 5 - 15 ml IV UD PRN PRN Reason: SALINE FLUSH Medical Necessity - Tobacco Use Smoking Status: Current every day smoker Assessment/Plan All Active Problems (Last Reviewed 09/09/20 @ 08:22 by Patricia Ellsworth) 37 weeks gestation of (Acute) Abnormal laboratory test result (Acute) Gestational diabetes (Acute) Supervision of high-risk (Acute) ASCUS of cervix with negative high risk HPV (Acute) Tobacco smoking affecting (Acute) History of recurrent miscarriages (Acute) Obesity affecting (Acute) (Acute) Protein S deficiency (Resolved) s/p PPD # 2 1. routine post delivery care 2. breast feeding- support given 3. rh positive 4. rubella immune
[2020-09-18 08:20] VITALS: BP 111/69; PULSE 63; RESP 16; TEMP 36.3
[2020-09-18 13:45] VITALS: BP 120/80; PULSE 77; RESP 16; TEMP 37
== END 2020-09-18 14:00 | disposition home or self-care (01) | DRG 560 ==
PROVIDERS: Admitting Provider Obstetrics & Gynecology; Referring Provider Obstetrics & Gynecology; Visit Provider Obstetrics & Gynecology
DX: O24.420 Gestational diabetes mellitus in childbirth, diet controlled (principal); Z37.0 Single live birth; F17.200 Nicotine dependence, unspecified, uncomplicated; O99.334 Smoking (tobacco) complicating childbirth; E66.9 Obesity, unspecified; O99.214 Obesity complicating childbirth; O69.81X0 Labor and delivery complicated by cord around neck, without compression, not applicable or unspecified; Z3A.37 37 weeks gestation of pregnancy
CPT/HCPCS: 59025; 59050; 82962; 85025; 86850; 86900; 86901; 99218; J7120; G0378

== ENCOUNTER → 2024-05-22 | Outpatient (CLI) | payer OTHER, SELFPAY ==
[2024-05-28 03:07] LABS: HPV APTIMA, High Risk Negative (Negative)
== END | disposition home or self-care (01) ==
LOC: LABSPEC 10:41
PROVIDERS: Referring Provider Nurse Practitioner Family; Visit Provider Nurse Practitioner Family
DX: Z01.419 Encounter for gynecological examination (general) (routine) without abnormal findings (principal)
CPT/HCPCS: 88175; G0145